=== PATIENT | female | born 1975 | race Caucasian/White ===

== ENCOUNTER → 2017-06-24 | Outpatient (CLI) | payer OTHER ==
[~2017-06-24] MED LIST: AZIT500 PO; CEFU500 PO; CIPR500 PO; CYCL10 PO; GABA300 PO; IBUP800 PO; LEVSOD75 PO; METF500 PO
== END | disposition home or self-care (01) ==
LOC: LAB UCHC 14:57
DX: R30.0 Dysuria (principal)
CPT/HCPCS: 87086

== ENCOUNTER → 2017-11-16 | Outpatient (CLI) | payer OTHER ==
[2017-11-16 12:18] LABS: Performing Lab LABCORP; Test Name 306266
== END ==
LOC: LAB 08:00 → LAB FUT 10-06 15:00
PROVIDERS: Urology
DX: N20.0 Calculus of kidney (principal)
CPT/HCPCS: 81050

== ENCOUNTER → 2019-08-31 | Outpatient (CLI) | payer OTHER | END | disposition home or self-care (01) | LOC: LAB SHORT 14:03 → LAB EV 14:03 | DX: J03.90 Acute tonsillitis, unspecified (principal) | CPT/HCPCS: 87081 ==

== ENCOUNTER 2020-06-03 11:12 | Emergency (ER) | payer OTHER ==
[~2020-06-03] VITALS: Ht 167.6 cm; Wt 90.7 kg
[2020-06-03] MEDS ORDERED: MELO7.5 PO (11:36)
[2020-06-03 11:54] LABS: BASOPHILS ABSOLUTE AUTO 0.06 K/mm3 (0.00-0.23); BASOPHILS PERCENT AUTO 1 % (0-2); EOSINOPHILS ABSOLUTE AUTO 0.05 K/mm3 (0.00-0.68); EOSINOPHILS PERCENT AUTO 1 % (0-6); Hematocrit 46.1 % (33.0-51.0); Hemoglobin 15.8 g/dL (11.5-16.0); IMMATURE GRAN ABSOLUTE AUTO 0.02 K/mm3 (0.00-0.10); IMMATURE GRAN PERCENT AUTO 0 % (0-1); LYMPHOCYTES ABSOLUTE AUTO 1.91 K/mm3 (0.84-5.20); LYMPHOCYTES PERCENT AUTO 29 % (21-46); MONOCYTES ABSOLUTE AUTO 0.44 K/mm3 (0.16-1.47); MONOCYTES PERCENT AUTO 7 % (4-13); Mean Corpuscular HGB 29.3 pg (26.0-34.0); Mean Corpuscular HGB Conc 34.3 g/dL (31.5-36.5); Mean Corpuscular Volume 85 fL (80-100); Mean Platelet Volume 10.3 fL (9.1-12.4); NEUTROPHILS ABSOLUTE AUTO 4.13 K/mm3 (1.96-9.15); NEUTROPHILS PERCENT AUTO 62 % (41-73); Platelet Count 228 K/mm3 (150-400); RDW Coefficient Variation 12.7 % (11.7-14.2); RDW Standard Deviation 38.9 fL (35.1-46.3); White Blood Cell Count 6.61 K/mm3 (4.00-11.30)
[2020-06-03 12:15] LABS: Alanine Aminotransfer (ALT/SGP 57 U/L (12-78); Albumin, Blood 4.5 g/dL (3.4-5.0); Albumin/Globulin Ratio 1.1 (0.8-1.8); Alk Phos 95 U/L (50-136); Anion Gap 13 mmol/L (6-16); Aspartate Aminotrans (AST/SGOT 26 U/L (12-37); Bilirubin, Total 0.6 mg/dL (0.1-1.0); Blood Urea Nitrogen 14 mg/dL (8-24); Bun/Creatinine Ratio 23.4 (12.0-20.0); CO2, Blood 20 mmol/L (21-32); Calcium, Blood 9.8 mg/dL (8.5-10.1); Chloride, Blood 106 mmol/L (98-108); Free Thyroxine 1.27 ng/dL (0.70-1.60); Glomerular Filtration Rate >60 (60-); Glucose, Blood 130 mg/dL (70-99); Potassium, Blood 3.5 mmol/L (3.5-5.5); Sodium, Blood 139 mmol/L (136-145); Total Protein, Blood 8.5 g/dL (6.4-8.2)
== END 2020-06-03 12:45 | disposition home or self-care (01) ==
LOC: ER 11:12
PROVIDERS: Emergency Medicine
DX: F19.239 Other psychoactive substance dependence with withdrawal, unspecified (principal); I10 Essential (primary) hypertension; E11.9 Type 2 diabetes mellitus without complications; Z88.6 Allergy status to analgesic agent; Z88.8 Allergy status to other drugs, medicaments and biological substances; Z79.899 Other long term (current) drug therapy
CPT/HCPCS: 36415; 80053; 84439; 84443; 85025; 93005; 93010; 96374; 99283-25; J2060

== ENCOUNTER 2021-07-16 10:44 | Day surgery (SDC) | payer OTHER ==
[~2021-07-16] VITALS: Ht 167.6 cm; Wt 94.4 kg
[~2021-07-16 10:44] MED LIST changes: +MELO7.5 PO
[2021-07-16] MEDS ORDERED: AMIT25 PO (11:02)
--- NOTE | 2021-07-16 12:10 | NUR ---
07/16/21 1210 DORA REYNOLDS 10ML LIDOCAINE WITH EPI 1:100,000 INJECTED INTO RIGHT HAND BY DR MELÉNDEZ. PT TOLERATED WELL
== END 2021-07-16 13:00 | disposition home or self-care (01) ==
LOC: ORSCSDS 10:44
PROVIDERS: Orthopaedic Surgery
PROC: 01N54ZZ Release Median Nerve, Percutaneous Endoscopic Approach (ICD-10-PCS; principal; 2021-07-16 12:00)
DX: G56.03 Carpal tunnel syndrome, bilateral upper limbs (principal); F41.8 Other specified anxiety disorders; K21.9 Gastro-esophageal reflux disease without esophagitis; E11.9 Type 2 diabetes mellitus without complications; F43.10 Post-traumatic stress disorder, unspecified; E66.9 Obesity, unspecified; Z68.33 Body mass index [BMI] 33.0-33.9, adult; Z79.84 Long term (current) use of oral hypoglycemic drugs; Z79.899 Other long term (current) drug therapy
CPT/HCPCS: 82947; J2250; J3010; J7120

== ENCOUNTER 2021-08-06 10:53 | Day surgery (SDC) | payer OTHER ==
[~2021-08-06] VITALS: Ht 167.6 cm; Wt 93.7 kg
[~2021-08-06 10:53] MED LIST changes: +AMIT25 PO
[2021-08-06] MEDS ORDERED: METF500 PO (11:17)
[2021-08-06] MEDS ORDERED: IBUP200 PO (11:17)
--- NOTE | 2021-08-06 13:36 | NUR ---
08/06/21 1336 DORA REYNOLDS T/O COMPLETED AND NERVE BLOCK COMPLETED FOR L CARPAL TUNNEL RELEASE PROCEDURE. DR. MELÉNDEZ AT BEDSIDE. PT MONITORED WITH PULSE OX DURING BLOCK PROCEDURE. PT TOLERATED WELL.
== END 2021-08-06 14:23 | disposition home or self-care (01) ==
LOC: ORSCSDS 10:53
PROVIDERS: Orthopaedic Surgery
PROC: 01N54ZZ Release Median Nerve, Percutaneous Endoscopic Approach (ICD-10-PCS; principal; 2021-08-06 12:30)
DX: G56.02 Carpal tunnel syndrome, left upper limb (principal); K21.9 Gastro-esophageal reflux disease without esophagitis; E11.9 Type 2 diabetes mellitus without complications; G47.33 Obstructive sleep apnea (adult) (pediatric); F31.9 Bipolar disorder, unspecified; E66.9 Obesity, unspecified; Z68.33 Body mass index [BMI] 33.0-33.9, adult; Z79.899 Other long term (current) drug therapy
CPT/HCPCS: 82947; J2250; J3010

== ENCOUNTER → 2023-06-22 | Outpatient (CLI) | payer OTHER ==
[~2023-06-22] MED LIST changes: +IBUP200 PO
[2023-06-22 16:16] LABS: Creatinine, Urine Random 35.6 mg/dL (27.00-270.00)
[2023-06-22 16:18] LABS: Microalb/Creat Ratio UR, Rand 306.18 mg/g (0.000-30.000)
== END ==
LOC: LAB SHORT 14:03 → LAB 14:03
PROVIDERS: Family Medicine
DX: E11.9 Type 2 diabetes mellitus without complications (principal)
CPT/HCPCS: 82043; 82570

== ENCOUNTER 2024-08-13 13:40 | Emergency (ER) | payer OTHER ==
[~2024-08-13] VITALS: Ht 165.1 cm; Wt 99.8 kg
[2024-08-13 13:58] VITALS: BP 168/96
== END 2024-08-13 14:55 | disposition left against medical advice (07) ==
LOC: ER 13:40
DX: L29.89 Other pruritus (principal); Z53.29 Procedure and treatment not carried out because of patient's decision for other reasons
CPT/HCPCS: 99281

== ENCOUNTER → 2024-12-13 | Outpatient (CLI) | payer OTHER | END | disposition home or self-care (01) | LOC: LAB 15:43 → LAB SHORT 15:43 | DX: R30.0 Dysuria (principal) | CPT/HCPCS: 87077; 87086; 87186 ==